=== PATIENT | female | born 2000 | race Caucasian/White ===

== ENCOUNTER 2022-09-25 22:32 | Emergency (ER) | payer MEDICAID, SELFPAY ==
[2022-09-25 22:37] VITALS: BP 125/82; PULSE 89; RESP 18; TEMP 36.9; O2SAT 99; BMI 26.6
--- NOTE | 2022-09-25 22:51 | CRLHL7_ITS ---
For Patients: As a result of the Century Cures Act, medical imaging exams and procedure reports are released immediately into your electronic medical record. You may view this report before your referring provider. If you have questions, please contact your health care provider. Indication: .CONSTIPATION, 3 WKS ABD PAIN Technique: Abdomen 2 view. Comparison: None. Findings/Impression: Non-obstructive bowel gas pattern. No free air. No abnormal abdominal calcifications. Surgical clips overlie the right in the abdomen. Osseous structures are unremarkable for age. Dictated by Dayron Frederick MD @ 09/25/2022 11:37:41 PM (Electronically Signed)
--- NOTE | 2022-09-25 22:51 | ED.GENADULT ---
HPI - General Adult General Chief complaint: Constipation Stated complaint: no bowel movements in 3 weeks Time Seen by Provider: 09/25/22 22:34 Source: patient and family Mode of arrival: ambulatory Limitations: no limitations History of Present Illness HPI narrative: 21-year-old female with history of anxiety disorder presents with a 3 week history of constipation. Passing gas. History of 1 prior abdominal surgery, non complicated appendectomy at age 13 or 14. She states that she started a new antidepressant around that time but cannot remember which 1. She followed up with her primary care doctor yesterday, she was prescribed a fiber supplement. She tried to take a dose of MiraLax today but states that it seemed to make her more nauseated and she could not get it down says she has vomited twice today. It sounds non bilious per her description but certainly no blood. There has been no blood in her stools, no urinary symptoms. Abdomen feels diffusely tender and bloated but no focal tenderness. No previous imaging or blood work. No prior history of significant constipation actually she states that her bowels tend to move very regularly. She does suspect that the new medication could be worsening things for her. Past medical history is notable only for anxiety disorder. She takes an unknown antidepressant per her. Chart says that this could be venlafaxine. I can not tell if this is the newly prescribed medication or 1 of the several that she has been on before. Socially, denies any toxic substance ingestion or illicit drugs. No pertinent travel. ROS is otherwise negative times 12 systems. Related Data Home Medications Medication Instructions Recorded Confirmed venlafaxine 75 mg capsule,extended 75 mg PO DAILY 09/25/22 09/25/22 release 24 hr Allergies Allergy/AdvReac Type Severity Reaction Status Date / Time sulfamethoxazole Allergy Mild Hives Verified 09/25/22 22:42 [From Bactrim] trimethoprim [From Bactrim] Allergy Mild Hives Verified 09/25/22 22:42 [facility] Medical History Depression ?F32.A - Depression, unspecified (ICD-10) AUREA (generalized anxiety disorder) ?F41.1 - Generalized anxiety disorder (ICD-10) Surgical History History of appendectomy ?Z90.49 - Acquired absence of other specified parts of digestive tract (ICD-10) Social History Smoking Status: Never smoker Do you use any of these nicotine containing products: None Second hand tobacco smoke exposure: No How often do you have a drink containing alcohol: never How often do you have six or more drinks on one occasion: Never AUDIT-C Alcohol total score: 0 Non-prescribed substance use: denies use Exam Const: Vital Signs, click to edit/add: Vital Signs - 24 hr 09/25/22 22:37 Temperature 98.4 F Pulse Rate [Right Pulse Oximeter] 89 Respiratory Rate 18 Blood Pressure [Ri ght Upper Arm] 125/82 Pulse Oximetry 99 Oxygen Delivery Me thod Room Air Documenting provider has reviewed patient's vital signs: yes Common normals: no apparent distress General appearance: cooperative, comfortable and well kempt HENMT: Common normals: normocephalic Head and scalp: normocephalic Face and sinus: normal facial exam Mouth: oral and palatal mucosa normal Throat: posterior oropharynx normal Eye: General eye: normal appearance of both eyes Neck & C-Spine: Common normals: full ROM and no lymphadenopathy Resp: Common normals: normal respiratory effort, no use of accessory muscles and clear to auscultation bilaterally Effort & inspection: able to speak in complete sentences Auscultation: clear to auscultation bilaterally Cardio: Common normals: regular rate, regular rhythm, S1 normal heart sound, S2 normal heart sound and no murmurs Rate: regular rate Rhythm: regular rhythm Heart sounds: S1 normal and S2 normal GI: Other: Benign-appearing abdomen. Bowel sounds are present in all 4 quadrants. Does really seem distended. It is mildly diffusely tender but nonfocal. No mass. Liver and spleen are not enlarged. Extremity: Common normals: normal to inspection Psych: Common normals: speech normal Appearance: well kempt Speech: normal speech Insight: insight good Judgement: judgment good Skin: Common normals: no rashes or lesions noted General skin exam: no rashes or lesions noted Course Vital Signs Vital signs: Initial Vital Signs Temperature 98.4 F 09/25/22 22:37 Temperature Source Temporal Artery Scan 09/25/22 22:37 Pulse Rate 89 09/25/22 22:37 Respiratory Rate 18 09/25/22 22:37 Blood Pressure 125/82 09/25/22 22:37 Blood Pressure Mean 96 09/25/22 22:37 Blood Pressure Position Sitting 09/25/22 22:37 Pulse Oximetry 99 09/25/22 22:37 Oxygen Delivery Method Room Air 09/25/22 22:37 Vital Signs Temperature 98.4 F 09/25/22 22:37 Pulse Rate 89 09/25/22 22:37 Respiratory Rate 18 09/25/22 22:37 Blood Pressure 125/82 09/25/22 22:37 Pulse Oximetry 99 09/25/22 22:37 Oxygen Delivery Method Room Air 09/25/22 22:37 Temperature 98.4 F 09/25/22 22:37 Pulse Rate 89 09/25/22 22:37 Respiratory Rate 18 09/25/22 22:37 Blood Pressure 125/82 09/25/22 22:37 Pulse Oximetry 99 09/25/22 22:37 Oxygen Delivery Method Room Air 09/25/22 22:37 Medical Decision Making MDM Narrative Medical decision making narrative: Wide differential diagnosis including constipation, obstruction, volvulus, functional abdominal pain, gas, GERD. Suspect constipation, induced and or worsened by recent SSRI use. Note reviewed from 09/25 from primary care provider. She does not believe to be able to hold down any laxatives that I give, we discussed risks and benefits of anti nausea medication and I do want her know that this can cause decreased got motility, worsening constipation but it may give this a chance to at least get the laxatives in her system. Will also perform an abdominal x-ray. Await findings. Update:. Patient has had no change in abdominal symptoms but she has not had any further vomiting here. I reviewed the x-ray findings with her, thankfully these are normal. There is no sign of obstruction or free air. There was certainly some stool and gas but is not overwhelming. I do believe that she will be able to relieve this with oral agents. I have given her 2 senna tablets here and I have encouraged her to push fluids when she gets home. Discussed laxative management at home she may do MiraLax or bisacodyl 5 mg tablets every 8 hours for up to 5 additional doses. She may stop when she has had 2 loose stools. Counseled that she will have cramping from these treatments. She has elected to stop the antidepressant. I have encouraged her to discuss this further with her primary care provider. There is not enough constipation to explain her nausea and I suspect that that is more a side effect from her current medication or a separate process. All questions answered. Imaging Data Abdominal x-ray: Attestation: I have reviewed the pertinent imaging results. My impression: Normal belly, no signs of obstruction or free air Radiologist's impression: Findings/Impression: Non-obstructive bowel gas pattern. No free air. No abnormal abdominal calcifications. Surgical clips overlie the right in the abdomen. Osseous structures are unremarkable for age. Discharge Plan Discharge Clinical Impression: Medication side effect, Constipation Patient Disposition: Home w/ Parent or Adult Condition: Stable Instructions: Constipation (DC) Additional Instructions: Discussed, I do suspect that your new medication is the root of your constipation and nausea. You have decided to stop the medication. This is reasonable but I would encourage you to work very closely with her primary care provider to discuss alternatives or potentially different dose that you may tolerate better. Your given 2 senna tablets here in the emergency department. Remember that this is a stimulant laxative and cramps are common. But it does do an excellent job of moving things through the gut. Drink plenty of water or diluted juice, T or other clear non milk beverages to help push this through. There are many laxative options available to you. The fiber that was discussed with your primary care provider is an excellent choice but is better for maintenance once we have gotten your stools moving well. Consider using that supplement once daily once we have achieved at least 2 loose bowel movements. After the senna, I would recommend that you switch tomorrow morning to bisacodyl 5 mg tablets. You can find this at any drug store or grocery store. Take the laxative every 8 hours for up to 5 additional doses. If you have still not experienced relief, call your primary care provider for additional assistance on Tuesday. You may stop the laxatives once you have had 2 loose stools. It is okay to use Tylenol and/or ibuprofen for the abdominal cramps that come with the laxatives. Activity Level: No Restrictions Discharge Diet: Regular Prescriptions: No Action venlafaxine 75 mg capsule,extended release 24hr 75 mg PO DAILY Stand Alone Forms: [employer] Info Instructions
[2022-09-25] MEDS: ONDANSETRON ODT 4 MG TAB PO (22:55)
--- OUTSIDE RECORDS SUMMARY | 2022-09-25 23:43 | XMS_ITS | Continuity of Care Document ---
Author Name Unknown Organization [facility] Address [address] [address] [place] [address] Phone Care Team Providers Care Electronics Teacher Name Role Phone No Information Unavailable Unavailable Advance Directives Directive Yes / No Effective Date File Name No Information Encounters Encounter Description Practice Location Reason(s) For Visit Diagnoses Date Provider Providers Copied on Encounter [facility], [address] [address], [place], [place], [id number], tel:[phone] No Information No Information Referring Provider: Ronen Daniel, [address] [place], [address] . tel:[phone] Family History Family Member Type Diagnosis Age At Onset No Information Payers Payer name Insurance type Covered constitution party ID Authoriza tion(s) No Information Social History Type Description Quantity Date Captured Comments Sex Female Smoking Status No Information Chief Complaint And Reason For Visit No Information Reason For Referral Reason For Referral No Information Plan Of Treatment Date Type Action Status No Information History Of Present Illness Encounter Date Complaint History Of Prese nt Illness No Information Functional Status Date Functional Assessmen t No Information Instructions Date Instruction Additional Infor mation No Information Assessments Type Assessment Date No Information Patient Care Teams Name Effective Dates (start - stop) Status Members No Information
--- OUTSIDE RECORDS SUMMARY | 2022-09-25 23:43 | XMS_ITS | Continuity of Care Document ---
Author Name Unknown Organization [facility] Address [address] [address] [place] [address] Phone Care Team Providers Care Chief Nursing Officer Name Role Phone No Information Unavailable Unavailable Advance Directives Directive Yes / No Effective Date File Name No Information Encounters Encounter Description Practice Location Reason(s) For Visit Diagnoses Date Provider Providers Copied on Encounter [facility], [address] [address], [place], [place], [address], tel:[phone] No Information No Information Referring Provider: Ronen Daniel, [address] [place], [address] . tel:[phone] Family History Family Member Type Diagnosis Age [...]
[2022-09-25] MEDS: SENNOSIDES 1 TAB TABLET 2 TAB PO (23:59)
== END 2022-09-26 | disposition home or self-care (01) ==
PROVIDERS: Emergency Provider Family Medicine
DX: K59.00 Constipation, unspecified (principal); T50.905A Adverse effect of unspecified drugs, medicaments and biological substances, initial encounter
CPT/HCPCS: 74019; 99283; A9270

== ENCOUNTER 2025-03-29 17:49 | Emergency (ER) | payer OTHER, SELFPAY ==
--- OUTSIDE RECORDS SUMMARY | 2017-06-06 04:40 | XMS_ITS | Continuity of Care Document ---
Author Organization [facility] Address [address] [address] [place] [address] Phone Care Team Providers Care Carpet Installer Name Role Phone No Information Unavailable Unavailable Advance Directives Directive Yes / No Effective Date File Name No Information Encounters Encounter Description Practice Location Reason(s) For Visit Diagnoses Date Provider Providers Copied on Encounter [facility], [address] [address], [place], [place], [address], tel:[phone] No Information No Information Referring Provider: Ronen Daniel, [address] [place], [address] . tel:[phone] Family History Family Member Type Diagnosis Age At Onset No Information Payers Payer name Insurance type Covered constitution party ID Authoriza tion(s) No Information Social History Type Description Quantity Date Captured Comments Sex Female Smoking Status No Information Chief Complaint And Reason For Visit No Information Reason For Referral Reason For Referral No Information History Of Present Illness Encounter Date Complaint History Of Prese nt Illness No Information Functional Status Date Functional Assessmen t No Information Instructions Date Instruction Additional Infor mation No Information Assessments Type Assessment Date No Information Patient Care Teams Name Effective Dates (start - stop) Status Members No Information
--- OUTSIDE RECORDS SUMMARY | 2017-06-06 04:40 | XMS_ITS | Continuity of Care Document ---
Author Organization [facility] Address [address] [place] [address] Phone Care Team Providers Care Belt Tender Name Role Phone No Information Unavailable Unavailable Advance Directives Directive Yes / No Effective Date File Name No Information Encounters Encounter Description Practice Location Reason(s) For Visit Diagnoses Date Provider Providers Copied on Encounter [facility], [address] [address], [place], [place], [address], tel:[phone] No Information No Information Referring Provider: Ronen Daniel, [address] [place], [address] . tel:[phone] Family History Family Member Type Diagnosis Age At Onset No Information Payers Payer name Insurance type Covered green party ID Authoriza tion(s) No Information Social [...]
[2025-03-29] VITALS (11 sets, daily range): BP systolic 128–164; BP diastolic 96–107; PULSE 95–119; RESP 18; TEMP 37.6–38.2; O2SAT 92–98; BMI 26.6
--- OUTSIDE RECORDS SUMMARY | 2025-03-29 17:51 | XMS_ITS | Clinical Summary ---
Author Organization [facility] Address [address] [place] [address] Care Team Providers Care Liquid Sugar Fortifier Name Role Phone Ronen Walker Primary Care Provider [phone] Allergies Active Allergy Reactions Criticality Noted Date Comments Azithromycin Hives,Nausea And Vomiting 09/19/19 19 Sulfamethoxazole-Trimethopri m Rash High 10/10/2017 Medications escitalopram oxalate (LEXAPRO) 10 mg tabletIndicatio ns:Depression with anxiety TAKE 1 TABLET BY MOUTH EVERY DAY IN THE MORNING 30 tablet 01/28/2019 Active Active Problems Problem Noted Date Diagnosed Date Irregular menses 02/22/2017 Depression with anxiety 02/22/2017 Sleep difficulties 02/22/2017 Immunizations Immunization Administration Dates Next Due DTaP 12/30/2005, 3,05/31/2001,04/13,01/25/2001 HIB-HepB (Comvax) 12/01/2001,04/13/2001,01/26/20 01 HPV 9 (Gardasil 9) 08/15/2018 HepA-HepB (Twinrix) 12/01/2001,04/13/2001,2000 Hepatitis B (Peds) 12/01/2001,04/13/2001, 001 Inactivated Polio Vaccine 12/30/2005,,04/13/2001,01/25 MENINGOCOCCAL VACCINE 2 VIAL 2MO-55YO (MENVEO) 08/15/2018 MMR 12/30/2005,12/01/2001 Meningococcal Vaccine 02/26/2013 Pneumococcal conj 7-Valent (Prevnar 7) 3,05/31/2001,01/25/2001 Tdap 02/26/2013 Varicella Vaccine 02/26/2013,12/01/2001 Family History Medical History Relation Name Comments No Known Problems Brother x 1 Alcoholism Father Anxiety disorder Father Diabetes Father Hyperlipidemia Father Hypertension Father Multiple sclerosis Maternal Grandmother Other Other MS in maternal gr aunt along with Lupus Diabetes Paternal Grandfather Heart attack Paternal Grandfather Hypertension Paternal Grandfather No Known Problems Paternal Grandmother No Known Problems Sister x 1 Relation Name Status Comments Brother x 1 Alive Father Alive Maternal Grandfather unknown Alive Maternal Grandmother Mother Alive Other Paternal Grandfather Alive Paternal Grandmother Alive Sister x 1 Alive Social History Tobacco Use Types Packs/Day Years Used Date Smoking Tobacco: Never Smokeless Tobacco: Never Tobacco Cessation:Counseling Given: Yes Alcohol Use Standard Drinks/Week Comments No 0 (1 standard drink = 0.6 oz pur e alcohol) PHQ-2 Answer Date Recorded PHQ-2 Score 5 09/05/2018 Comments No Sex and Gender Information Value Date Recorded Sex Assigned at Not on file Legal Sex Female 4:14 PM CDT Gender Identity Not on file Sexual Orientation Not on file 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 Not on file Not 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 Not on file Not on file Obstetrics History Last Filed Vital Signs Vital Sign Reading Time Taken Comments Blood Pressure 143/80 04/17/2021 6:17 PM CDT Pulse 87 04/17/2021 6:17 PM CDT Temperature 36.4 C (97.6 F) 04/17/2021 6:17 PM CDT Respiratory Rate 14 04/17/2021 6:17 PM CDT Oxygen Saturation 99% 04/17/2021 6:17 PM CDT Inhaled Oxygen Concentration - - Weight 72.6 kg (160 lb) 04/17/2021 6:17 PM CDT Height 170.2 cm (5' 7) 04/17/2021 6:17 PM CDT Body Mass Index 25.06 04/17/2021 6:17 PM CDT Plan of Treatment Health Maintenance Due Date Last Done Comments HIV for age 15-65 11/22/2015 HPV series for age 9-45 (2 - 3-dose series) 09/12/2018 08/15/2018 Hepatitis C screening for age 18-79 2018 Depression screening for age 12+ 08/17/2019 08/17/2018, 08/17/2018, 08/15/2018, Additional history exists Chlamydia for age 16-24 09/16/2019 09/15/2018, 08/15 BMI (ht and wt on same day) for age 18+ 03/27/2020 03/27/2019 Pap test for age 21-65 2021 Tetanus booster 02/26/2023 02/26/2013 COVID-19 vaccine series ( season) 2025 08/02/2022, 05/01/2021, 04/10/2021 Influenza Vaccine (#1) 2025 RSV vaccine for adults or (1 - 1-dose 75+ series) 11/22/2075 Hepatitis B series for 19+ Completed 12/01, 12/01/2001, 12/01/2001, Additional history exists Pneumococcal series for age 6-49 Aged Out 09/14/2002, 05/31/2001, 01/25/2001 No longer eligible based on patient's age to complete this topic Procedures Procedure Name Priority Date/Time Associated Diagnosis Comments CHLAMYDIA TRACH PROBE Routine 09/15/2018 12:57 PM CDT Urine positive for Chlamydia trachomatis by PCR from Last 3 Months or Most Recently Relevant to Health Maintenance Results * CHLAMYDIA TRACH PROBE (09/15/2018 12:57 PM CDT) CHLAMYDIA PROBE Negative 09/18/2018 1:34 PM CDT [facility] Other URINE SPECIMEN / Unknown Non-Blood / Unknown 09/15/2018 12:57 PM CDT 09/15/2018 12:57 PM CDT us Ron[facility] Final Resul t [facility] [address] [place] [address], [place] from Last 3 Months or Most Recently Relevant to Health Maintenance Insurance [facility] Member Subscriber Plan / Payer (Ef fective 2018-Present) Name:Abigail Cunningham Relation to Subscriber:Child Name:Emily CUNNINGHAM Date of :1971 (Home) (Work) Address: [address] [place] [address] Payer ID:Not on file Group ID:[id number] Type:Not on file Address: [place] [address] Care Teams Liquid Sugar Fortifier Relationship Specialty [place] [address] [place] [address] PCP - General Family Practice 10/03/17
--- OUTSIDE RECORDS SUMMARY | 2025-03-29 17:51 | XMS_ITS | Clinical Summary ---
Author Organization [place] [facility] Address [address] [facility] [place] [address] Care Team Providers Care Nursing Education Specialist Name Role Phone Colleen Plascencia MD Primary Care Provider [phone] See Pantoja Unavailable Unavailable Crescencio Dominguez Unavailable Allergies Active Allergy Reactions Criticality Noted Date Comments Azithromycin Nausea and Vomiting,Hives 09/19/19 19 Sulfamethoxazole-Trimethopri m Rash High 10/10/2017 Medications ondansetron (ZOFRAN-ODT) 4 MG ODT tabIndications: Nausea Take 1 tablet (4 mg) by mouth every 8 hours as needed for nausea or vomiting 30 tablet 10/18/2020 Active dicyclomine (BENTYL) 20 MG tablet Take 20 mg by mouth Active celecoxib (CELEBREX) 100 MG capsule Take 100 mg by mouth 01/20/2023 Active busPIRone (BUSPAR) 7.5 MG tablet Take 7.5 mg by mouth 2 times daily 01/20/2023 Active citalopram (CELEXA) 20 MG tablet Take 10 mg by mouth daily 01/20/2023 Active Active Problems Problem Noted Date Diagnosed Date Irritable bowel syndrome with diarrhea 3 Menorrhagia with regular cycle 09/24/2022 Overview (02/21/2023): Last Assessment & Plan: - Pt has very heavy periods. Has side effects with OCPs and bleeding did not improve with nexplanon. Discussed hormonal IUD and placement at length, discussed likely best option to decrease bleeding. Recommended taking ibuprofen before placement. Offered referral but she does have a WOUND TREATMENT RN she already uses. Recommended discussing with her further. Also recommended trying to have placed during her cycle to decrease discomfort. Moderate episode of recurrent major depressive d isorder 09/23/2022 Overview (02/21/2023): Last Assessment & Plan: - Mood doing much better on current medications but having trouble with constipation. See pt instructions. Will start fiber supplement daily. Discussed may have bloating at start but should start to soften and regulate stools. - Will keep at same dose due to fear that increase will cause worsening side effects. Refills provided. Recheck in 3-6 months based on response. AUREA (generalized anxiety disorder) 05/13/2020 Thoracic radiculopathy 05/13/2020 Irregular menses 02/22/2017 Sleep difficulties 02/22/2017 Resolved Problems Problem Noted Date Diagnosed Date Resolved Date Appendicitis 12/27/2014 05/13/2020 Immunizations Immunization Administration Dates Next Due COVID-19 MONOVALENT 12+ (Pfizer) 05/01/2021,02/2021 Comvax (HIB/HepB) 12/01/2001,04/13/2001,01/26/20 01 DTAP (<7y) 12/30/2005, 3,05/31/2001,04/13,01/25/2001 HPV 02/18/2021 HPV9 (Gardasil) 05/13/2020,08/15/2018 Hepatitis A/B (Twinrix) 12/01/2001,04/13/2001, Hepatitis B, Peds (Engerix-B/Recombivax HB) 12/01/2001,04/13/2001,01/25/2001 MMR (MMRII) 12/30/2005,12/01/2001 Meningococcal ACWY (Menveo ) 08/15/2018 Meningococcal Mcv4 Conjugate,unspecified 02/26/2013 Pneumococcal (PCV 7) 09/14/2002,05/31/2001,01/25 Pneumococcal 20 valent Conju gate (Prevnar 20) 02/21/2023 Poliovirus, inactivated (IPV) 12/30/2005 ,05/31/2001,04/13/2001,01/25 TDAP (Adacel,Boostrix) 02/21/2023 Tdap (Adult) Unspecified Formulation 02/26/2013 Varicella (Varivax) 02/26/2013,12/01/2001 Family History Medical History Relation Comments Diabetes Father Hypertension Father Hypertension Mother Diabetes Paternal Grandfather Relation Status Comments Father Mother Paternal Grandfather Social History Tobacco Use Types Packs/Day Years Used Date Smoking Tobacco: Every Day Other Smokeless Tobacco: Never Tobacco Cessation:Counseling Given: Yes Comments:E-Cig Alcohol Use Standard Drinks/Week Comments No 0 (1 standard drink = 0.6 oz pur e alcohol) PHQ-2 Answer Date Recorded PHQ-2 Score 0 02/21/2023 Adolescent Education Answer Date Record ed Getting School Help Needed Not on file 04/19 Comments No Sex and Gender Information Value Date Recorded Sex Assigned at Female 10/20/2020 2:01 PM CDT Legal Sex Female 4:18 AM NURSE PRACTITIONER PHYSICIAN ASSISTANT Gender Identity Female 10/20/2020 2:01 PM CDT Sexual Orientation Not on file Last Filed Vital Signs Vital Sign Reading Time Taken Comments Blood Pressure 110/72 02/21/2023 10:52 AM CDT Pulse 60 02/21/2023 10:52 AM CDT Temperature 36.6 C (97.9 F) 02/21/2023 10:52 AM CDT Respiratory Rate 18 02/21/2023 10:52 AM CDT Oxygen Saturation 98% 02/21/2023 10:52 AM CDT Inhaled Oxygen Concentration - - Weight 79.8 kg (176 lb) 02/21/2023 10:52 AM CDT Height 168.9 cm (5' 6.5) 02/21/2023 10:52 AM CD T Body Mass Index 27.98 02/21/2023 10:52 AM CDT Plan of Treatment Health Maintenance Due Date Last Done Comments ADVANCE CARE PLANNING 2000 DEPRESSION ACTION PLAN 2000 PAP 2021 CHLAMYDIA SCREENING 02/18/2022 02/18/2021 PHQ-9 03/28/2022 09/25/2021, 10/03, 05/13/2020 ANNUAL REVIEW OF HM ORDERS 02/22/2024 02/21/2023, YEARLY PREVENTIVE VISIT 02/22/2024 02/22/20 23, 05/13/2022, 05/13/2020 COVID-19 VACCINE ( season) 2025 08/02/2022, 05/01/2021, 04/10/2021 INFLUENZA VACCINE (#1) 2025 DTAP/TDAP/TD VACCINE (8 - Td or Tdap) 02/21/2033 02/21/2023, 02/26/2013, 12/30/2005, Additional history exists ZOSTER VACCINE (1 of 2) 2050 HEPATITIS B VACCINE Completed 12/01/2001, 12/01/2001, 12/01/2001, Additional history exists MENINGITIS VACCINE Completed 08/15/2018, 02/26/2013 HIV SCREENING Discontinued 02/18/2021 HPV VACCINE Completed 02/18/2021, 05/04, 08/15/2018 PNEUMOCOCCAL VACCINE: PEDIATRICS (0 to 5 YEARS) AND AT-RISK PATIENTS (6 to 49 YEARS) Aged Out 02/21/2023, 09/14/2002, 05/31/2001, Additional history exists No longer eligible based on patient's age to complete this topic HEPATITIS C SCREENING Discontinued MENINGITIS B VACCINE Aged Out No long er eligible based on patient's age to complete this topic Procedures Procedure Name Priority Date/Time Associated Diagnosis Comments CHLAMYDIA TRACHOMATIS PCR (EXTERNAL RESULT) Routine 02/18/2021 1:09 AM CDT from Last 3 Months or Most Recently Relevant to Health Maintenance Results * Chlamydia Trachomatis PCR (External Result) (02/18/2021 1:09 AM CDT) Specimen Description URINE [facility] Chlamydia Trachomatis PCR Negative Negative [facility] 02/18/2021 1:09 AM CDT Narrative [facility] - 02/18/2021 1:09 AM CDT chlamydia screening done 02/18/21 [facility], Found in Care Everywhere us Patient Reported LAB - HIM EXTERNAL RESULT Final Result [facility] [address] [place] [address] from Last 3 Months or Most Recently Relevant to Health Maintenance Insurance [facility] Advance Directives For more information, please contact: [phone] * Full Code (Latest Code Status on File) Date Activated Date Inactivated Comments 12/27/2014 10:10 PM 12/28/2014 1:04 PM Care Teams Nursing Education Specialist Relationship Specialty Start [place] [address] [place] [address] PCP - General Family Medicine 05/13/20 See Pantoja Personal Advocate & Liaison (PAL) 12/05/20 Crescencio Dominguez PA [address] [place] [id number] Assigned PCP 02/26/23
--- OUTSIDE RECORDS SUMMARY | 2025-03-29 17:52 | XMS_ITS | Encounter Summary ---
Author Organization [facility] Address [address] [place] [address]. [place] [address] Care Team Providers Care Maintenance Helper Utility Engineer Name Role Phone Colleen Plascencia MD Primary Care Provider [phone] Colleen Plascencia MD Unavailable [phone] Thad Ahmadi Unavailable Unavailable See Pantoja Unavailable Unavailable Colleen Plascencia MD Unavailable [phone] Crescencio Dominguez Unavailable [phone] Encounter Details Date Type Department Care Team (Late st Contact Info) Description 10/20/2020 [facility] Medical Advice [facility] [id number] [place] [id number] [place] [id number] [place] [address] Social History Tobacco Use Types Packs/Day Years Used Date Smoking Tobacco: Every Day Other Smokeless Tobacco: Never Comments:E-Cig Alcohol Use Standard Drinks/Week Comments No 0 (1 standard drink = 0.6 oz pur e alcohol) PHQ-2 Answer Date Recorded PHQ-2 Score 2 10/22/2020 Comments No Sex and Gender Information Value Date Recorded Sex Assigned at Female 10/20/2020 2:01 PM CDT Legal Sex Female 4:18 AM PALLIATIVE CARE NURSE Gender Identity Female 10/20/2020 2:01 PM CDT Sexual Orientation Not on file COVID-19 Exposure Response Date Recorded In the last month, have you been in contact with someone who was confirmed or suspected to have Coronavirus / COVID-19? No / Unsure 10/22/2020 9:27 AM CDT documented as of this encounter Miscellaneous Notes * Telephone Encounter - Franco Jasso RN - 10/20/2020 10:10 AM CDT Per OV notes from visiti 10/18/20: Dizziness She is in no acute distress on exam. CBC is unremarkable. CMP and TSH is pending. Patient will be notified if any abnormal results. Push fluids. Rest. Follow up with primary care provider for the nexplanon removal. Sooner if any worsening symptoms. She agrees. Patient needs to be scheduled for OV for nexplanon removal w/ PCP. Routing to [place] to assist. Franco Chauhan RN documented in this encounter Plan of Treatment Not on file documented as of this encounter Visit Diagnoses Not on filedocumented in this encounter Additional Health Concerns Assessment Noted Time PHQ-9 Depression Total Score: 11 025 9:51 AM CDT documented as of this encounter Care Teams Maintenance Helper Utility Engineer Relationship Specialty Start [place] [address] [place] [address] PCP - General Family Medicine 05/13/20 [place] [address] [place] [address] Assigned PCP 04/24/20 06/18/22 Thad Ahmadi Personal Advocate & Liaison (PAL) 11/06/20 12/05/20 See Pantoja Personal Advocate & Liaison (PAL) 12/05/20 [place] [address] [place] [address] Assigned PCP 08/28/22 02/25/23 Crescencio Dominguez PA [address] [place] [id number] Assigned PCP 02/26/23 documented as of this encounter
--- OUTSIDE RECORDS SUMMARY | 2025-03-29 17:52 | XMS_ITS | Encounter Summary ---
Author Organization [facility] Address [address] [place] [address]. [place] [address] Care Team Providers Care Campus Administrator Name Role Phone Colleen Plascencia MD Primary Care Provider [phone] See Pantoja Unavailable Unavailable Colleen Plascencia MD Unavailable [phone] Crescencio Dominguez Unavailable [phone] Encounter Details Date Type Department Care Team (Late st Contact Info) Description 02/22/2023 My[facility] Medical Advice [facility] [address] [place] [address] Crescencio Dominguez PA [address] [place], [place] [id number] Social History Tobacco Use Types Packs/Day Years Used Date Smoking Tobacco: Every Day Other Smokeless Tobacco: Never Comments:E-Cig Alcohol Use Standard Drinks/Week Comments No 0 (1 standard drink = 0.6 oz pur e alcohol) PHQ-2 Answer Date Recorded PHQ-2 Score 0 02/21/2023 Comments No Sex and Gender Information Value Date Recorded Sex Assigned at Female 10/20/2020 2:01 PM CDT Legal Sex Female 4:18 AM TAP PULLER Gender Identity Female 10/20/2020 2:01 PM CDT Sexual Orientation Not on file COVID-19 Exposure Response Date Recorded In the last 10 days, have yo u been in contact with someone who was confirmed or suspected to have Coronavirus/COVID-19? No / Unsure 02/21/2023 10:36 AM CDT documented as of this encounter Plan of Treatment Not on file documented as of this encounter Visit Diagnoses Not on filedocumented in this encounter Additional Health Concerns Assessment Noted Time PHQ-9 Depression Total Score: 4 09/27/19 22 7:03 AM CDT documented as of this encounter Care Teams Campus Administrator Relationship Specialty Start [place] [address] [place] [address] PCP - General Family Medicine 05/13/20 See Pantoja Personal Advocate & Liaison (PAL) 12/05/20 [place] [address] [place] [address] Assigned PCP 08/28/22 02/25/23 Crescencio Dominguez PA [address] [place] [id number] Assigned PCP 02/26/23 documented as of this encounter
--- OUTSIDE RECORDS SUMMARY | 2025-03-29 17:52 | XMS_ITS | Clinical Summary ---
[facility] Address [address] [address] Care Team Providers Care Raschel Knitting Machine Operator Name Role Phone Yani Dickinson PA-C Primary Care Provider Source Comments You are receiving this document as you are listed as the primary care provider,follow-up provider, or the patient has been referred to you for consultation.This is in compliance with the Medicare and[facility] EHR Incentive Program,which states Providers who transition their patient to another setting of careor provider of care or refers their patient to another provider of care shouldprovide summary care record for each transition of care or referral. [facility] Allergies Active Allergy Reactions Criticality Noted Date Comments Azithromycin Hives,Nausea And Vomiting High 09/19/19 19 Sulfamethoxazole-Trimethopri m Rash Medium 10/10/2017 Medications ondansetron (ZOFRAN) 4 MG tabletIndication s:Nausea Take 1 Tablet (4 mg) by mouth every 8 hours as needed for Nausea. 20 Tablet 08/18/2023 Active Active Problems Problem Noted Date Diagnosed Date Irritable bowel syndrome with diarrhea 3 Menorrhagia with regular cycle 09/24/2022 Assessment & Plan (09/24/2022 6:08 AM CDT): - Pt has very heavy periods. Has side effects with OCPs and bleeding did not improve with nexplanon. Discussed hormonal IUD and placement at length, discussed likely best option to decrease bleeding. Recommended taking ibuprofen before placement. Offered referral but she does have a ELECTROMECHANICAL ASSEMBLER she already uses. Recommended discussing with her further. Also recommended trying to have placed during her cycle to decrease discomfort. Moderate episode of recurrent major depressive d isorder 09/23/2022 Assessment & Plan (09/24/2022 6:06 AM CDT): - Mood doing much better on current medications but having trouble with constipation. See pt instructions. Will start fiber supplement daily. Discussed may have bloating at start but should start to soften and regulate stools. - Will keep at same dose due to fear that increase will cause worsening side effects. Refills provided. Recheck in 3-6 months based on response. Fatigue 08/02/2022 Assessment & Plan (08/02/2022 9:34 AM TRAIN BRAKEMAN): - Screen for diabetes and iron deficiency anemia. May start on metformin if in prediabetic range because pt feels significantly fatigued and her blood sugar has been up to 180 when she checks it at home. AUREA (generalized anxiety disorder) 07/30/2022 Overview (08/02/2022): Previously lexapro, zoloft, increased depression, mainly on for depression at that point. Previous ativan prescription was for MRI,not anxiety. Assessment & Plan (08/02/2022 9:33 AM TRAIN BRAKEMAN): -Discussed that usually takes 4-6 weeks before an effect is noted. May have acute worsening of symptoms for the first 2 weeks. If severe mood changes or depression, please call and we will stop the medication right away. - Will follow up in 1 month for recheck. - Atarax for anxiety, take in the evening for first dose to see if causes fatigue. Do not mix with alcohol. - Referral for therapy placed. Thoracic radiculopathy 05/13/2020 Overview (07/30/2022): From 2019, on gabapentin, followed by neurology Resolved Problems Problem Noted Date Diagnosed Date Resolved Date Acne vulgaris 09/23/2022 08/18/2023 Screening for diabetes mellitus 08/02/2022 09/23/2022 Sleep difficulties 02/22/2017 Irregular menses 02/22/2017 05/13/2022 Depression with anxiety 02/22/201705/04 Immunizations Immunization Administration Dates Next Due 9vHPV (Gardasil 9) 02/18/2021,05/13/2020, 019 DTaP 12/30/2005, 3,05/31/2001,04/13,01/25/2001 HepA-HepB (TWINRIX, 18+ yrs) 12/01/2001,04/13/20 01,01/25/2001 HepB Ped/Adol (0-18 yrs) 12/01/2001,04/13/2001,0 01/25/2001 Hib/HBV 12/01/2001,04/13/2001,01/25/2001 IPV (Polio) 12/30/2005, 1,04/13/2001,01/25 MCV4 Menveo 2m.+ (two vial) 08/15/2018 MMR 12/30/2005,12/01/2001 Meningococcal MCV4, Unspecif ied Formulation 02/26/2013 Meningococcal, Unspecified Formulation 3 PCV20 ([id number]) 02/21/2023 Pfizer Bivalent 12+ 08/02/2022 Pfizer Monovalent 12+ Purple Top 05/01/2021,02/2021 Pneumococcal 7, PED 09/14/2002,05/31/2001,2000 Td (7+ yrs) 02/26/2013 Tdap 02/21/2023,02/26/2013 Varicella 02/26/2013,12/01/2001 Family History Medical History Relation Name Comments Diabetes Father Glenn Hernandez Hypertension Father Glenn Hernandez Depression Mother Yoly Wu Hypertension Mother Yoly Wu Asthma Brother Tobin Wu Depression Brother Tobin Wu No Known Problems Maternal Grandfather Multiple Sclerosis Maternal Grandmother Diabetes Paternal Aunt Vale Hernandez Alzheimer's Paternal Grandfather Diabetes Paternal Grandfather No Known Problems Paternal Grandmother No Known Problems Sister Cancer, Breast Negative Family History Cancer, Colon Negative Family History Cancer, Ovary Negative Family History Relation Name Status Comments Father Glenn Hernandez Alive Mother Yoly Wu Alive Brother Tobin Wu Alive Maternal Grandfather Maternal Grandmother Paternal Aunt Vale Hernandez Paternal Grandfather Paternal Grandmother Sister Alive Social History Tobacco Use Types Packs/Day Years Used Date Smoking Tobacco: Never Smokeless Tobacco: Never Tobacco Cessation:Counseling Given: Not Answered Alcohol Use Standard Drinks/Week Comments Not Currently 0 (1 standard drink = 0.6 oz pur e alcohol) PHQ-2 Answer Date Recorded PHQ-2 Score 2 01/20/2023 Comments No Sex and Gender Information Value Date Recorded Sex Assigned at Female 01/08/2021 6:35 PM CDT Legal Sex Female 2:32 PM TRAIN BRAKEMAN Gender Identity Female 01/08/2021 6:35 PM CDT Sexual Orientation Straight 10/21/2021 10 :23 PM CDT 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 Not on file Not on file Last Filed Vital Signs Vital Sign Reading Time Taken Comments Blood Pressure 123/65 08/18/2023 11:26 AM TRAIN BRAKEMAN Pulse 67 08/18/2023 11:26 AM TRAIN BRAKEMAN Temperature 36.9 C (98.5 F) 08/18/2023 11:26 AM TRAIN BRAKEMAN Respiratory Rate 18 08/12/2020 2:43 PM TRAIN BRAKEMAN Oxygen Saturation 98% 08/12/2020 2:43 PM TRAIN BRAKEMAN Inhaled Oxygen Concentration - - Weight 76.2 kg (168 lb) 08/18/2023 11:26 AM TRAIN BRAKEMAN Height 170.2 cm (5' 7) 08/02/2022 9:01 AM TRAIN BRAKEMAN Body Mass Index 26.31 08/02/2022 9:01 AM TRAIN BRAKEMAN Plan of Treatment Health Maintenance Due Date Last Done Comments Hep C Screening (Preventive Services) 2000 Adult Preventive Visit 05/13/2023 05/13/2022, 2020 Chlamydia 05/13/2023 05/13/2022, 02/18/2021 COVID-19 Vaccine ( season) 2025 08/02/2022, 05/01/2021, 04/10/2021 Influenza Vaccine (#1) 2025 Cervical Cancer Screening 05/13/2025 05/13/2022 DTaP/Tdap/Td Vaccine (8 - Tdap) 02/21/2033 02/21/2023, 02/26/2013, 02/26/2013, Additional history exists Zoster/Shingles Vaccine (1 of 2) 2050 HepB Vaccine Completed 12/01/2001, 11/03, 12/01/2001, Additional history exists Hib Vaccine Completed 12/01/2001, 04/03, 01/25/2001 IPV (Polio) Vaccine Completed 12/30/2005, 05/31/2001, 04/13/2001, Additional history exists Varicella Vaccine Completed 02/26/2013, 12/01/2001 MCV4 Vaccine Completed 08/15/2018, 02/26/2013 HIV Screening (Preventive Services) Completed 02/18/2021 HPV Vaccine Completed 02/18/2021, 05/04, 08/15/2018 Pneumococcal Vaccine Aged Out 02/21/2023, 09/14/2002, 05/31/2001, Additional history exists No longer eligible based on patient's age to complete this topic Meningococcal B Vaccine Aged Out No l onger eligible based on patient's age to complete this topic Procedures Procedure Name Priority Date/Time Associated Diagnosis Comments CHLAMYDIA & GC (14 YEARS & OLDER) Routine 05/13/2022 4:11 PM TRAIN BRAKEMAN Annual physical exam Screen for STD (sexually transmitted disease) CYTOLOGY (PAP) Routine 05/13/2022 4:10 PM TRAIN BRAKEMAN Screening for cervical cancer HIV 1/2 AG/AB 4TH GEN Routine 02/18/2021 12:26 PM CDT Screening for HIV (human immunodeficiency virus) from Last 3 Months or Most Recently Relevant to Health Maintenance Results * Chlamydia & GC (14 Years and Older) (05/13/2022 4:11 PM TRAIN BRAKEMAN) Chlamydia Trachomatis STD Not Detected Not Detected 05/14/2022 12:30 PM TRAIN BRAKEMAN [facility] N. gonorrhoeae STD Not Detected Not Detected 05/14/2022 12:30 PM TRAIN BRAKEMAN [facility] Swab STD SPECIMEN FROM VAGINA / Unknown Non-blood Collection / Unknown 05/13/2022 4:11 PM TRAIN BRAKEMAN 05/13/2022 4:17 PM TRAIN BRAKEMAN Narrative [facility] - 05/14/2022 12:30 PM TRAIN BRAKEMAN Test performed by Golf Ball Inspector Mediated Amplification (TMA). Thania Caballero APRN, LORA LAB_1 Final Result [facility] [address] [place] [address], [facility] [phone] * PAP Test (05/13/2022 4:10 PM TRAIN BRAKEMAN) Case Report Pap Case: [id number] Authorizing Provider: Thania Caballero APRN, Collected: 05/13/2022 1610 ELECTRONIC ENGINEERING TECHNICIAN Ordering Location: [facility] Received: 05/13/2022 1618 Services-BISQUE KILN DRAWER First Screen: Suze Cartwright Rescreen: Gaviota Burciaga CT (ASCP) Specimen: Pap Test, Routine, Cervix/Endocervix 05/26/2022 1:16 PM TRAIN BRAKEMAN [facility] Pap Specimen Adequacy Satisfactory for evaluation, endocervical/gray sformation zone component present. 05/26/2022 1:16 PM TRAIN BRAKEMAN [facility] Pap Interpretation (NILM) Negative for intraepithelial lesion or malignancy. 05/26/2022 1:16 PM TRAIN BRAKEMAN [facility] at 1316 TRAIN BRAKEMAN Pap Disclaimer The Pap test is a screening test designed to aid in the detection of cervical cancer and its precursor lesions. It is not a diagnostic procedure and should not be used as the sole means of detecting cervical cancer. Both false-positive and false-negative results may occur. 05/26/2022 1:16 PM TRAIN BRAKEMAN [facility] Gross Description The specimen is received in SurePath fixative and properly labeled. 1 Pap-stained SurePath slide is prepared. 05/26/2022 1:16 PM TRAIN BRAKEMAN [facility] Embedded Images 1:16 PM TRAIN BRAKEMAN [facility] Other Specimen Type ENTIRE ENDOCERVIX / Unknown 05/13/2022 4:10 PM TRAIN BRAKEMAN 05/13/2022 4:18 PM TRAIN BRAKEMAN Comment:LMP: Patient's last menstrual period was 04/29/2022 (exact date). us Thania Caballero APRN, ELECTRONIC ENGINEERING TECHNICIAN LAB PATHOLOGY Final Result [facility] [address] [place], [place] [address] * HIV 1/2 Ag/Ab 4th Generation (02/18/2021 12:26 PM CDT) HIV 1/2 Antigen/Anti body (4th generation) Negative (Non Reactive) Negative (Non Reactive) 02/18/2021 4:50 PM CDT [facility] Comment:HIV-1 p24 Antigen an d HIV-1/HIV-2 Antibody not detected Blood Venipuncture / Unknown 02/18/2021 12:26 PM CDT 02/18/2021 12:27 PM CDT us Anisha Main MD LAB_1 Final Result Performing Organization Address City/[facility] Co de Phone Number [facility] [address] [phone] from Last 3 Months or Most Recently Relevant to Health Maintenance Insurance [facility] MEDICAL ASSISTANCE Care Teams Raschel Knitting Machine Operator Relationship Specialty Start Date End Date Yani Dickinson, PAKavehC [address] [place] [address] PCP - General Physician Audit Director 09/03/22
--- OUTSIDE RECORDS SUMMARY | 2025-03-29 17:52 | XMS_ITS | Encounter Summary ---
Author Organization [place] Address [address] [place] [address]. [place] [address] Care Team Providers Care Recoil Spring Winder Name Role Phone Colleen Plascencia MD Primary Care Provider [phone] Colleen Plascencia MD Unavailable [phone] See Pantoja Unavailable Unavailable Colleen Plascencia MD Unavailable [phone] Crescencio Dominguez Unavailable [phone] Encounter Details Date Type Department Care Team (Late st Contact Info) Description 09/25/2021 My[facility] Medical Advice [address] [phone] See Pantoja Social History Tobacco Use Types Packs/Day Years [...] PM CDT Legal Sex Female 4:18 AM ENLISTED ADVISOR Gender Identity Female 10/20/2020 2:01 PM CDT Sexual Orientation Not on file COVID-19 Exposure Response Date Recorded In the last month, have you been in contact with someone who was confirmed or suspected to have Coronavirus / COVID-19? No / Unsure 09/02/2021 5:32 PM ENLISTED ADVISOR documented as of this encounter Plan of Treatment Not on file documented as of this encounter Visit Diagnoses Not on filedocumented in this encounter Additional Health Concerns Assessment Noted Time PHQ-9 Depression Total Score: 4 09/27/19 22 7:03 AM CDT documented as of this encounter Care Teams Recoil Spring Winder Relationship Specialty [place] [address] [place] [address] PCP - General Family Medicine 05/13/20 [place] [address] [place] [address] Assigned PCP 04/24/20 06/18/22 See Pantoja Personal Advocate & Liaison (PAL) 12/05/20 [place] [address] [place] [address] Assigned PCP 08/28/22 02/25/23 Crescencio Dominguez PA [address] [place] [address] Assigned PCP 02/26/23 documented as of this encounter
--- OUTSIDE RECORDS SUMMARY | 2025-03-29 17:52 | XMS_ITS | Encounter Summary ---
Author Organization [place] Address [address] [place] [address]. 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 No / Unsure 09/02/2021 5:32 PM SEGMENTAL PAVING SUPERVISOR documented as of this encounter Plan of Treatment Not on file documented as of this encounter Visit Diagnoses Not on filedocumented in this encounter Additional Health Concerns Assessment Noted Time PHQ-9 Depression Total Score: 4 09/27/19 22 7:03 AM CDT documented as of this encounter Care Teams Tight Rope Walker Relationship Specialty Start [place] [address] [place] [address] PCP - General Family Medicine 05/13/20 [place] [address] [place] [address] Assigned PCP 04/24/20 06/18/22 See Pantoja Personal Advocate & Liaison (PAL) 12/05/20 [place] [address] [place] [address] Assigned PCP 08/28/22 02/25/23 Crescencio Dominguez PA [address] [place] [id number] Assigned PCP 02/26/23 documented as of this encounter
--- NOTE | 2025-03-29 18:16 | ED_ITS ---
HPI - General Adult General Date Seen: 03/29/25 Chief complaint: Fever Stated complaint: Fever, lethargy, dehydration Time Seen by Provider: 03/29/25 18:10 History of Present Illness HPI narrative: Patient is a 24-year-old young woman here with her mom for evaluation of fever and flu symptoms. 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 She has not had a rash, she has had a headache, has felt dizzy when she stands up. Had an episode of vomiting last night and another 1 today although she has not vomited since about 1:00 a.m. this afternoon. Denies diarrhea or bloody stools. Denies any chest pain, cough, abdominal or back pain, urinary symptoms. General health is otherwise good. She feels very dizzy when she stands up, does not think she has kept up on hydration. She does not describe vertigo, does get some nausea when she stands up related to the dizzy feeling. When she is lying down she feels fine. Related Data Allergies Allergy/AdvReac Type Severity Reaction Status Date / Time sulfamethoxazole (From Allergy Mild Hives Verified 03/29/25 18:02 Bactrim) trimethoprim (From Bactrim) Allergy Mild Hives Verified 03/29/25 18:02 Review of Systems Status of ROS: Reports: 10 or more systems reviewed and unremarkable except as noted in History and below [facility] Medical History Depression ?F32.A - Depression, unspecified (ICD-10) AUREA (generalized anxiety disorder) ?F41.1 - Generalized anxiety disorder (ICD-10) Surgical History History of appendectomy ?Z90.49 - Acquired absence of other specified parts of digestive tract (ICD- 10) Social History Smoking Status: Never smoker Do you use any of these nicotine containing products: None Second hand tobacco smoke exposure: No How often do you have a drink containing alcohol: never How often do you have six or more drinks on one occasion: Never AUDIT-C Alcohol total score: 0 Non-prescribed substance use: denies use service: No Exam Narrative: Exam Narrative: Vital signs reviewed In general, alert, nontoxic young woman. Breathing easily. Head: Normocephalic, atraumatic. Eyes: Sclera clear. Pupils equal and reactive. ENT: Mucous membranes dry. Neck: Supple without adenopathy. Heart: Tachycardic, regular, no murmur. Lungs: Clear. No increased work of breathing, crackles or wheezes. Abdomen: Soft, nontender to palpation. Extremities: Well perfused, pulses intact. No significant edema. Neurologic: Alert, conversant. Speech fluent, face symmetric. Moves all extremities equally. No ataxia. Skin: Warm, dry well perfused. Affect: Normal. Const: Vital Signs, click to edit/add: Vital Signs - 24 hr 03/29/25 17:58 03/29/25 18:15 03/29/25 18:39 Temperature 100.8 F H 100.8 F H Pulse Rate [Left P ulse Oximeter] 119 H Pulse Rate [Pulse Oximeter] 95 Respiratory Rate 18 18 Blood Pressure [Ri ght Arm] 128/96 H Blood Pressure [Ri ght Upper Arm] 164/107 H Pulse Oximetry 96 98 92 Oxygen Delivery Me thod Room Air Room Air 03/29/25 18:40 03/29/25 18:50 03/29/25 19:00 Temperature Pulse Rate [Left P ulse Oximeter] Pulse Rate [Pulse Oximeter] Respiratory Rate Blood Pressure [Ri ght Arm] Blood Pressure [Ri ght Upper Arm] Pulse Oximetry 94 94 97 Oxygen Delivery Me thod 03/29/25 19:05 03/29/25 19:10 03/29/25 19:20 Temperature Pulse Rate [Left P ulse Oximeter] Pulse Rate [Pulse Oximeter] Respiratory Rate Blood Pressure [Ri ght Arm] Blood Pressure [Ri ght Upper Arm] Pulse Oximetry 96 94 94 Oxygen Delivery Me thod 03/29/25 19:41 03/29/25 19:42 Temperature 99.6 F Pulse Rate [Left P ulse Oximeter] Pulse Rate [Pulse Oximeter] Respiratory Rate Blood Pressure [Ri ght Arm] Blood Pressure [Ri ght Upper Arm] Pulse Oximetry 95 95 Oxygen Delivery Me thod Course Course ED Course: Patient presents with fever, she is fairly tachycardic, febrile here with a temperature of a 100.8?. Presents with a headache, but no meningeal signs, I do not have any reason to suspect meningitis or encephalitis at this time. Symptoms are likely be viral but will check some basic labs, give a L of normal saline, Toradol and Zofran for headache, and reassess how she feels. If labs are concerning or she is feeling worse would consider pursuing other workup. In the absence of symptoms pointing to a likely bacterial cause for her fever, doubt sepsis at this time. Labs are notable for a mildly elevated white blood cell count of 12, lactate is normal at 1.2, I did add on a procalcitonin and this is likewise normal. Her CRP is markedly elevated at almost 17, is urine is notable for 4+ ketones but negative for infection. One view chest is negative by my review, negative by radiology read. Metabolic panel is unremarkable with the exception of an elevated gap of 18, mildly low potassium at 3.1. She did have 1 additional episode of vomiting while here but none since IV was placed and Zofran given. She had a total of 2 L of normal saline is feeling markedly improved. She looks well at this time, she has been ambulatory to the bathroom and her dizziness has resolved. We discussed her labs, discussed that the elevated CRP is somewhat unexpected in the setting of a viral infection, discussed doing additional testing to look for a bacterial source, but in the absence of any symptoms suggesting a bacterial cause, she would prefer just to see how she does over the next couple of days. I think that is reasonable, she understands to return if she has worsening or focal symptoms. Otherwise, will send her home with Zofran, ibuprofen and/or Tylenol as needed for fever. I did recommend that she be seen in clinic on Tuesday if not improving over the next couple of days. We replaced her potassium with 50 meq of potassium bicarbonate. Anticipate that her potassium will normalize once vomiting is controlled. Vital Signs Vital signs: Initial Vital Signs Temperature 100.8 F H 03/29/25 17:58 Temperature Source Temporal Artery Scan 03/29/25 17:58 Pulse Rate 119 H 03/29/25 17:58 Pulse Rhythm Regular 03/29/25 17:58 Respiratory Rate 18 03/29/25 17:58 Blood Pressure 164/107 H 03/29/25 17:58 Blood Pressure Mean 126 H 03/29/25 17:58 Blood Pressure Position Sitting 03/29/25 17:58 Pulse Oximetry 96 03/29/25 17:58 Oxygen Delivery Method Room Air 03/29/25 17:58 Vital Signs Temperature 100.8 F H 03/29/25 17:58 Pulse Rate 119 H 03/29/25 17:58 Respiratory Rate 18 03/29/25 17:58 Blood Pressure 164/107 H 03/29/25 17:58 Pulse Oximetry 96 03/29/25 17:58 Oxygen Delivery Method Room Air 03/29/25 17:58 Temperature 99.6 F 03/29/25 19:42 Pulse Rate 95 03/29/25 18:15 Respiratory Rate 18 03/29/25 18:15 Blood Pressure 128/96 H 03/29/25 18:15 Pulse Oximetry 95 03/29/25 19:42 Oxygen Delivery Method Room Air 03/29/25 18:15 Medications Administered Medications: Generic Name Dose Route Start Last Admin Trade Name Daltonq PRN Reason Stop Dose Admin Sodium Chloride 1,000 mls @ 1,000 mls/hr 03/29/25 19:45 03/29/25 19:52 0.9 % Sodium Chloride 1000 Ml IV 03/29/25 20:44 1,000 mls/hr .Q1H RACHAEL Administration Potassium Bicarbonate 50 meq 03/29/25 19:48 03/29/25 20:10 Potassium Bicarb 25 Meq Effervescent Tab PO 03/29/25 19:49 50 meq ONCE ONE Administration Discontinued Medications Generic Name Dose Route Start Last Admin Trade Name Daltonq PRN Reason Stop Dose Admin Sodium Chloride 1,000 mls @ 1,000 mls/hr 03/29/25 18:15 03/29/25 19:18 0.9 % Sodium Chloride 1000 Ml IV 03/29/25 19:14 Infused .Q1H RACHAEL Infusion Ketorolac Tromethamine 15 mg 03/29/25 18:15 03/29/25 18:39 Ketorolac 15 Mg/Ml Inj IVP 03/29/25 18:16 15 mg ONCE ONE Administration Ondansetron HCl 4 mg 03/29/25 18:15 03/29/25 18:39 Ondansetron 2 Mg/Ml Inj IVP 03/29/25 18:16 4 mg ONCE ONE Administration Medical Decision Making Lab Data Labs: Lab Results 09/26/25 09/26/25 Range/Units 18:28 19:35 WBC 13.48 H (4.50-11.00) K/uL RBC 4.64 (4.00-5.20) m/uL Hgb 13.6 (12.0-16.0) gm/dL Hct 39.8 (33.0-51.0) % MCV 86 (80-100) fL MCH 29 (26-34) pg MCHC 34 (32-36) gm/dL RDW Coeff of Ashli 13.7 (11.5-15.5) % Plt Count 259 (140-440) K/uL Neut % (Auto) 81.6 H (42.0-72.0) % Lymph % (Auto) 10.4 L (20-44) % Otero % (Auto) 7.6 (0.0-11.0) % Eos % (Auto) 0.0 (0.0-7.0) % Baso % (Auto) 0.2 (0.0-3.0) % Neut # (Auto) 11.00 H (1.7-7.0) K/uL Lymph # (Auto) 1.40 (0.90-2.90) K/uL Otero # (Auto) 1.00 H (0.00-0.90) K/UL Eos # (Auto) 0.00 (0.00-0.50) K/uL Baso # (Auto) 0.00 (0.00-0.30) K/uL Abs Immat Gran (auto) 0.00 (0.00-0.30) K/uL Imm/Tot Granulo (auto) 0.2 % Sodium 137 (135-149) mmol/L Potassium 3.1 L (3.6-5.1) mmol/L Chloride 99 (96-114) mmol/L Carbon Dioxide 20 (20-32) mmol/L Anion Gap 18 H (7-15) mEq/L BUN 7 (5-24) mg/dL Creatinine 0.7 (0.5-1.5) mg/dL Estimated Creat Clear 120.51 Estimated GFR 124 ml/min Glucose 96 (60-115) mg/dL Lactate 1.2 (0.5-1.9) mmol/L Calcium 9.3 (8.4-10.6) mg/dL Total Bilirubin 0.7 (0.1-1.5) mg/dL Direct Bilirubin 0.4 (0.0-0.5) mg/dL AST 24 (12-35) U/L ALT 18 (4-35) U/L Alkaline Phosphatase 84 (40-150) U/L C-Reactive Protein 16.7 H (0.5-1.0) mg/dL Total Protein 9.1 H (6.0-8.3) g/dL Albumin 4.9 (3.3-5.0) g/dL Procalcitonin 0.09 (<0.50) ng/mL Urine Color Yellow (Yellow) Urine Appearance Clear (Clear) Urine pH 6.0 (5.0-8.5) Ur Specific [place] >= 1.030 (1.000-1.030) Urine Protein 3+ A (Negative) Urine Glucose (UA) Negative (Negative) Urine Ketones 4+ A (Negative) Urine Blood Trace-lysed A (Negative) Urine Nitrite Negative (Negative) Urine Bilirubin 2+ A (Negative) Urine Urobilinogen 1.0 (0.2-1.0) Ur Leukocyte Esterase Negative (Negative) Urine RBC 2-5 A (0-2) Urine WBC 2-5 (0-5) Ur Squamous Epith Cells Many A (None-Few) Amorphous Sediment Moderate A (None) Urine Bacteria Few A (None) WBC Casts Few A (None) Urine Mucus Few A (None) SARS-CoV-2 (PCR) Negative SARS-CoV-2 (Negative) Influenza Type A (PCR) Negative PCR FLU A (Negative) Influenza Type B (PCR) Negative PCR FLU B (Negative) RSV (PCR) Negative PCR RSV (Negative) Discharge Plan Discharge Clinical Impression: Fever Patient Disposition: Home, Self-Care Condition: Improved Instructions: Fever in Adults (ED) Additional Instructions: As we discussed, your labs are overall reassuring, but you did have an elevated C-reactive protein, a nonspecific inflammatory marker. If you are improving over the next couple of days, this likely is not significantly important. However, if you are not improving over the next couple of days, I would like you to be seen in clinic on Tuesday for recheck. Alternatively, if you are feeling worse in any way, return to the ER for re-evaluation. Otherwise, ibuprofen and/or Tylenol as needed for fever, maintain hydration. Zofran if needed for nausea. Return to work when symptoms are improved and fever has resolved. Follow Up/Referrals: Provider,Not a Local [Primary Care Provider, Family Practice] Stand Alone Forms: BlitzLocal Info Instructions
[2025-03-29 18:35] LABS: Hematocrit* 39.8 % (33.0-51.0); Hemoglobin* 13.6 gm/dL (12.0-16.0); Immature Granulocytes Pct Auto 0.2 %; Lymphocytes Absolute Auto 1.40 K/uL (0.90-2.90); Mean Corpuscular HGB Conc 34 gm/dL (32-36); Mean Corpuscular Hemoglobin 29 pg (26-34); Mean Corpuscular Volume 86 fL (80-100); RDW Coefficient of Variation % 13.7 % (11.5-15.5); Red Blood Count* 4.64 m/uL (4.00-5.20); White Blood Count* 13.48 K/uL (4.50-11.00)
[2025-03-29 18:37] LABS: Lactate Sepsis w/Reflex* 1.2 mmol/L (0.5-1.9)
[2025-03-29] MEDS: ONDANSETRON 2 MG/ML inj 4 MG IVP (18:39)
[2025-03-29 18:42] LABS: Immature Granulocytes Abs Auto 0.00 K/uL (0.00-0.30); Slide Review Reflex No
[2025-03-29 18:54] LABS: Albumin* 4.9 g/dL (3.3-5.0); Chloride* 99 mmol/L (96-114)
[2025-03-29 18:55] LABS: Potassium* 3.1 mmol/L (3.6-5.1); Sodium* 137 mmol/L (135-149)
[2025-03-29 18:57] LABS: Blood Urea Nitrogen* 7 mg/dL (5-24); Creatinine* 0.7 mg/dL (0.5-1.5); Est. Creatinine Clearance* 120.51; Estimated Glomerular Filt Rate 124 ml/min
[2025-03-29 18:58] LABS: Alanine Aminotransferase* 18 U/L (4-35); Alkaline Phosphatase* 84 U/L (40-150); Anion Gap 18 mEq/L (7-15); Aspartate Amino Transferase* 24 U/L (12-35); Bilirubin Direct* 0.4 mg/dL (0.0-0.5); Bilirubin Total* 0.7 mg/dL (0.1-1.5); Calcium* 9.3 mg/dL (8.4-10.6); Carbon Dioxide* 20 mmol/L (20-32); Glucose* 96 mg/dL (60-115); Total Protein* 9.1 g/dL (6.0-8.3)
--- NOTE | 2025-03-29 19:24 | CRLHL7_ITS ---
For Patients: As a result of the Cures Act, medical imaging exams and procedure reports are released immediately into your electronic medical record. You may view this report before your referring provider. If you have questions, please contact your health care provider. INDICATION: Trauma, not otherwise described. COMPARISON: None available. TECHNIQUE: Single AP view of the chest. FINDINGS: Medical Devices: None. Lung Volumes: Adequate inspiration. No significant atelectasis. Lungs: Clear lungs. Pleura and Pleural spaces: No significant pleural effusion. No pneumothorax. Mediastinum: Normal cardiomediastinal silhouette. Bony Thorax and Soft Tissues: No acute traumatic injury is identified. Incidental note is made of a right humeral head bone island. IMPRESSION: No acute traumatic injury is identified. No significant incidental findings. Dictated by Vance Rasheed MD @ 03/29/2025 7:59:44 PM (Electronically Signed)
[2025-03-29 19:44] LABS: Appearance Urine Clear (Clear)
[2025-03-29] MEDS: POTASSIUM BICARB 25 MEQ EFFERVESCENT TAB 50 MEQ PO (20:10)
[2025-03-29 20:17] LABS: Procalcitonin* 0.09 ng/mL (<0.50)
[2025-03-29 20:17] LABS: PCR FLU A Negative PCR FLU A (Negative); PCR FLU B Negative PCR FLU B (Negative); PCR RSV Negative PCR RSV (Negative); SARS PCR* Negative SARS-CoV-2 (Negative)
== END 2025-03-29 21:06 | disposition home or self-care (01) ==
PROVIDERS: Emergency Provider Emergency Medicine
DX: R50.9 Fever, unspecified (principal)
CPT/HCPCS: 36415; 71045; 80048; 80076; 81001; 83605; 84145; 85025; 86140; 87086; 87631; 96374; 96375; 99284; A9270; J1885; J2405; J7030

== ENCOUNTER 2025-03-30 13:22 | Emergency (ER) | payer OTHER, SELFPAY ==
--- OUTSIDE RECORDS SUMMARY | 2017-06-06 04:40 | XMS_ITS | Continuity of Care Document ---
Author Organization [facility] Address [address] [address] [place] [address] Phone Care Team Providers Care Area Field Person Name Role Phone No Information Unavailable Unavailable Advance Directives Directive Yes / No Effective Date File Name No Information Encounters Encounter Description Practice Location Reason(s) For Visit Diagnoses Date Provider Providers Copied on Encounter [facility], [address] [address], [place], [place], [id number], tel:[phone] No Information No Information Referring Provider: Ronen Daniel, [address] [place], [address] . tel:[phone] Family History Family Member Type Diagnosis Age At Onset No Information Payers Payer name Insurance type Covered alliance party ID Authoriza tion(s) No Information Social [...]
--- OUTSIDE RECORDS SUMMARY | 2017-06-06 04:40 | XMS_ITS | Continuity of Care Document ---
Author Organization [facility] Address [address] [address] [place] [address] Phone Care Team Providers Care Title One Teacher Name Role Phone No Information Unavailable Unavailable Advance Directives Directive Yes / No Effective Date File Name No Information Encounters Encounter Description Practice Location Reason(s) For Visit Diagnoses Date Provider Providers Copied on Encounter [facility], [address] [address], [place], [place], [address], tel:[phone] No Information No Information Referring Provider: Ronen Daniel, [address] [place], [address] . tel:[phone] Family History Family Member Type Diagnosis Age At Onset No Information Payers Payer name Insurance type Covered libertarian ID Authoriza tion(s) No Information Social History [...]
--- OUTSIDE RECORDS SUMMARY | 2025-03-30 13:23 | XMS_ITS | Clinical Summary ---
Author Organization [facility] Address [address] [place] [address] Care Team Providers Care Ten Pin Bowling Centre Manager Name Role Phone Ronen Walker Primary Care Provider [phone] Allergies Active Allergy Reactions Criticality Noted Date [...] file Not on file Not on file automation tender Not on file Not on file Not [...] CHLAMYDIA PROBE Negative 09/18/2018 1:34 PM CDT [facility] Other URINE SPECIMEN / Unknown Non-Blood / Unknown 09/15/2018 12:57 PM CDT 09/15/2018 12:57 PM CDT us Ronen ATWOOD MICROBIOLOGY Final Resul t [facility] [address] [place] [address], [place] from Last 3 Months or Most Recently Relevant to Health Maintenance Insurance [facility] [employer] Member Subscriber Plan / Payer (Ef fective 2018-Present) Name:Abigail Cunningham Relation to Subscriber:Child Name:Emily CUNNINGHAM Date of :1971 (Home) (Work) Address: [address] [place] [address] Payer ID:Not on file Group ID:[id number] Type:Not on file Address: [place] [address] Care Teams Ten Pin Bowling Centre Manager Relationship Specialty [place] [address] [place] [address] PCP - General Family Practice 10/03/17
--- OUTSIDE RECORDS SUMMARY | 2025-03-30 13:23 | XMS_ITS | Clinical Summary ---
Author Organization [place] Address [address] [facility] 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 CARE MANAGER Gender Identity Female 10/20/2020 2:01 PM CDT [...] (02/18/2021 1:09 AM CDT) Specimen Description URINE [facility] Chlamydia Trachomatis PCR Negative Negative [facility] 02/18/2021 1:09 AM CDT Narrative [facility] - 02/18/2021 1:09 AM CDT chlamydia screening done 02/18/21 [facility], Found in Care Everywhere us Patient Reported LAB - HIM EXTERNAL RESULT Final Result [facility] [address] [place] [address] from Last 3 Months or Most Recently Relevant to Health Maintenance Insurance [facility] Advance Directives For more information, please contact: [phone] * Full Code (Latest Code Status on File) Date Activated Date Inactivated Comments 12/27/2014 10:10 PM 12/28/2014 1:04 PM Care Teams Commercial Loan Specialist Relationship Specialty Start [place] [address] [place] [address] PCP - General Family Medicine 05/13/20 See Pantoja Personal Advocate & Liaison (PAL) 12/05/20 Crescencio Dominguez PA [address] [place] [id number] Assigned PCP 02/26/23
--- OUTSIDE RECORDS SUMMARY | 2025-03-30 13:24 | XMS_ITS | Encounter Summary ---
Author Organization [facility] Address [address] [place] [address]. [place] [address] Care Team Providers Care Early Childhood Services Coordinator Name Role Phone Colleen Plascencia MD Primary Care Provider [phone] Colleen Plascencia MD Unavailable [phone] Thad Ahmadi Unavailable Unavailable See Pantoja Unavailable Unavailable Colleen Plascencia MD Unavailable [phone] Crescencio Dominguez Unavailable [phone] Encounter Details Date Type Department Care Team (Late st Contact Info) Description 10/20/2020 [facility] Advice [facility] [address] [place] [id number] [place] [id number] [place] [address] Social History Tobacco Use Types Packs/Day [...] PM CDT Legal Sex Female 4:18 AM 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 Routing to [place] ER to assist. Franco Chauhan RN documented in this encounter Plan of Treatment Not on file documented as of this encounter Visit Diagnoses Not on filedocumented in this encounter Additional Health Concerns Assessment Noted Time PHQ-9 Depression Total Score: 8 03/30/20 25 9:03 AM CDT documented as of this encounter Care Teams Early Childhood Services Coordinator Relationship Specialty Start [place] [address] [place] [address] PCP - General Family Medicine 05/13/20 [place] [address] [place] [address] Assigned PCP 04/24/20 06/18/22 Thad Ahmadi Personal Advocate & Liaison (PAL) 11/06/20 12/05/20 See Pantoja Personal Advocate & Liaison (PAL) 12/05/20 [place] [address] [place] [address] Assigned PCP 08/28/22 02/25/23 Crescencio Dominguez PA [address] [place] [address] Assigned PCP 02/26/23 documented as of this encounter
--- OUTSIDE RECORDS SUMMARY | 2025-03-30 13:24 | XMS_ITS | Encounter Summary ---
Author Organization [place] Address [address] [place] [address]. [place] [address] Care Team Providers Care Director Index Name Role Phone Colleen Plascencia MD Primary Care Provider [phone] Colleen Plascencia MD Unavailable [phone] See Pantoja Unavailable Unavailable Colleen Plascencia MD Unavailable [phone] Crescencio Dominguez Unavailable [phone] Encounter Details Date Type Department Care Team (Late st Contact Info) Description 09/25/2021 [facility] Medical Advice [address] [phone] See Pantoja Social History Tobacco Use Types [...] PM CDT Legal Sex Female 4:18 AM E LEARNING COORDINATOR Gender Identity Female 10/20/2020 2:01 PM CDT Sexual Orientation Not on file COVID-19 Exposure Response Date Recorded In the last month, have you been in contact with someone who was confirmed or suspected to have Coronavirus / COVID-19? No / Unsure 09/02/2021 5:32 PM E LEARNING COORDINATOR documented as of this encounter Plan of Treatment Not on file documented as of this encounter Visit Diagnoses Not on filedocumented in this encounter Additional Health Concerns Assessment Noted Time PHQ-9 Depression Total Score: 4 09/27/19 22 7:03 AM CDT documented as of this encounter Care Teams Director Index Relationship Specialty Start [place] [address] [place] [address] PCP - General Family Medicine 05/13/20 [place] [address] [place] [address] Assigned PCP 04/24/20 06/18/22 See Pantoja Personal Advocate & Liaison (PAL) 12/05/20 [place] [address] [place] [address] Assigned PCP 08/28/22 02/25/23 Crescencio Dominguez PA [address] [place] [address] Assigned PCP 02/26/23 documented as of this encounter
--- OUTSIDE RECORDS SUMMARY | 2025-03-30 13:24 | XMS_ITS | Encounter Summary ---
Author Organization [facility] Address [address] [place] [address]. 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 No / Unsure 09/02/2021 5:32 PM SCOUT LEASER documented as of this encounter Plan of Treatment Not on file documented as of this encounter Visit Diagnoses Not on filedocumented in this encounter Additional Health Concerns Assessment Noted Time PHQ-9 Depression Total Score: 4 09/27/19 22 7:03 AM CDT documented as of this encounter Care Teams Earrings Fabricator Relationship Specialty [place] [address] [place] [address] PCP - General Family Medicine 05/13/20 [place] [address] [place] [address] Assigned PCP 04/24/20 06/18/22 See Pantoja Personal Advocate & Liaison (PAL) 12/05/20 [place] [address] [place] [address] Assigned PCP 08/28/22 02/25/23 Crescencio Dominguez PA [address] [place] [id number] Assigned PCP 02/26/23 documented as of this encounter
--- OUTSIDE RECORDS SUMMARY | 2025-03-30 13:24 | XMS_ITS | Encounter Summary ---
Author Organization [facility] Address [address] [place] [address]. 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
--- OUTSIDE RECORDS SUMMARY | 2025-03-30 13:24 | XMS_ITS | Clinical Summary ---
[facility] Address [address] [address] Care Team Providers Care Railroad Shop Inspector Name Role Phone Yani Dickinson PA-C Primary Care Provider Source Comments You are receiving this document as you are listed as the primary care provider,follow-up provider, or the patient has been referred to you for consultation.This is in compliance with the Medicare andThe [facility] EHR Incentive Program,which states Providers who transition their patient to another setting of careor provider of care or refers their patient to another provider of care shouldprovide summary care record for each transition of care or referral. Critical access hospital Allergies Active Allergy Reactions Criticality Noted Date [...] Offered referral but she does have a PROVIDER RELATIONS CONSULTANT she already uses. Recommended discussing with her [...] 08/02/2022 Assessment & Plan (08/02/2022 9:34 AM ENVIRONMENTAL HEALTH MANAGER): - Screen for diabetes and iron deficiency [...] anxiety. 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 Not on file Not on file Last Filed Vital Signs Vital Sign Reading Time Taken Comments Blood Pressure 123/65 08/18/2023 11:26 AM ENVIRONMENTAL HEALTH MANAGER Pulse 67 08/18/2023 11:26 AM ENVIRONMENTAL HEALTH MANAGER Temperature 36.9 C (98.5 F) 08/18/2023 11:26 AM ENVIRONMENTAL HEALTH MANAGER Respiratory Rate 18 08/12/2020 2:43 PM ENVIRONMENTAL HEALTH MANAGER Oxygen Saturation 98% 08/12/2020 2:43 PM ENVIRONMENTAL HEALTH MANAGER Inhaled Oxygen Concentration - - Weight 76.2 kg (168 lb) 08/18/2023 11:26 AM ENVIRONMENTAL HEALTH MANAGER Height 170.2 cm (5' 7) 08/02/2022 9:01 AM ENVIRONMENTAL HEALTH MANAGER Body Mass Index 26.31 08/02/2022 9:01 AM ENVIRONMENTAL HEALTH MANAGER Plan of Treatment Health Maintenance Due Date [...] YEARS & OLDER) Routine 05/13/2022 4:11 PM ENVIRONMENTAL HEALTH MANAGER Annual physical exam Screen for STD (sexually transmitted disease) CYTOLOGY (PAP) Routine 05/13/2022 4:10 PM ENVIRONMENTAL HEALTH MANAGER Screening for cervical cancer HIV 1/2 AG/AB 4TH GEN Routine 02/18/2021 12:26 PM CDT Screening for HIV (human immunodeficiency virus) from Last 3 Months or Most Recently Relevant to Health Maintenance Results * Chlamydia & GC (14 Years and Older) (05/13/2022 4:11 PM ENVIRONMENTAL HEALTH MANAGER) Chlamydia Trachomatis STD Not Detected Not Detected 05/14/2022 12:30 PM ENVIRONMENTAL HEALTH MANAGER [facility] N. gonorrhoeae STD Not Detected Not Detected 05/14/2022 12:30 PM ENVIRONMENTAL HEALTH MANAGER [facility] Swab STD SPECIMEN FROM VAGINA / Unknown Non-blood Collection / Unknown 05/13/2022 4:11 PM ENVIRONMENTAL HEALTH MANAGER 05/13/2022 4:17 PM ENVIRONMENTAL HEALTH MANAGER Narrative [facility] - 05/14/2022 12:30 PM ENVIRONMENTAL HEALTH MANAGER Test performed by Fitter/Welder Mediated Amplification (TMA). Thania Caballero APRN, [facility]OR[facility] LAB_1 Final Result [facility] [address] [place] [address], [facility] [phone] * PAP Test (05/13/2022 4:10 PM ENVIRONMENTAL HEALTH MANAGER) Case Report Pap Case: [id number] Authorizing Provider: Thania Caballero APRN, Collected: 05/13/2022 1610 UTILITY SYSTEM OPERATOR Ordering Location: [facility] Received: 05/13/2022 1618 Services-WASTEWATER DESIGN ENGINEER First Screen: Suze Cartwright Rescreen: Gaviota Burciaga CT (ASCP) Specimen: Pap Test, Routine, Cervix/Endocervix 05/26/2022 1:16 PM ENVIRONMENTAL HEALTH MANAGER [facility] Pap Specimen Adequacy Satisfactory for evaluation, endocervical/gray sformation zone component present. 05/26/2022 1:16 PM ENVIRONMENTAL HEALTH MANAGER [facility] Pap Interpretation (NILM) Negative for intraepithelial lesion or malignancy. 05/26/2022 1:16 PM ENVIRONMENTAL HEALTH MANAGER [facility] at 1316 ENVIRONMENTAL HEALTH MANAGER Pap Disclaimer The Pap test is a screening test designed to aid in the detection of cervical cancer and its precursor lesions. It is not a diagnostic procedure and should not be used as the sole means of detecting cervical cancer. Both false-positive and false-negative results may occur. 05/26/2022 1:16 PM ENVIRONMENTAL HEALTH MANAGER [facility] Gross Description The specimen is received in SurePath fixative and properly labeled. 1 Pap-stained SurePath slide is prepared. 05/26/2022 1:16 PM ENVIRONMENTAL HEALTH MANAGER [facility] Embedded Images 1:16 PM ENVIRONMENTAL HEALTH MANAGER [facility] Other Specimen Type ENTIRE ENDOCERVIX / Unknown 05/13/2022 4:10 PM ENVIRONMENTAL HEALTH MANAGER 05/13/2022 4:18 PM ENVIRONMENTAL HEALTH MANAGER Comment:LMP: Patient's last menstrual period was 04/29/2022 (exact date). us Thania Caballero APRN, UTILITY SYSTEM OPERATOR LAB PATHOLOGY Final Result [facility] [address] [place], [place] [address] * HIV 1/2 Ag/Ab 4th Generation (02/18/2021 12:26 PM CDT) HIV 1/2 Antigen/Anti body (4th generation) Negative (Non Reactive) Negative (Non Reactive) 02/18/2021 4:50 PM CDT [facility] Comment:HIV-1 p24 Antigen an d HIV-1/HIV-2 Antibody not detected Blood Venipuncture / Unknown 02/18/2021 12:26 PM CDT 02/18/2021 12:27 PM CDT us Anisha Main MD LAB_1 Final Result Performing Organization Address City/[facility] Co de Phone Number [facility] [address] [phone] from Last 3 Months or Most Recently Relevant to Health Maintenance Insurance [facility] Care Teams Railroad Shop Inspector Relationship Specialty Start Date End Date Yani Dickinson, PAKavehC [address] [address] [place] [address] PCP - General Physician Supervisor Newspaper Deliveries 09/03/22
[2025-03-30 13:30] VITALS: BP 124/77; PULSE 112; RESP 18; TEMP 37.7; O2SAT 96; BMI 26.6
--- NOTE | 2025-03-30 13:44 | ED.GENADULT ---
HPI - General Adult General Chief complaint: Nausea/Vomiting Stated complaint: Nausea, short of breath Time Seen by Provider: 03/30/25 13:34 History of Present Illness HPI narrative: This 24-year-old female was seen yesterday in this emergency department because of nausea and lightheadedness symptoms. An IV was established where she received fluids and Zofran. Labs are acquired and the patient was feeling better and was sent home. She states that she awoke at about 12:30 a.m. with fever measured at about 102 and nausea symptoms with vomiting. She has had recurrent vomiting and persistent fever since then and returns now. She does not report any pain. She does feel some reflux symptoms up into her chest but states that this is likely related to vomiting. She arrives here with a temperature of 100? F. She has not taken any antipyretics. She has been taking Zofran without much relief. She does arrive here reporting a dry mouth and has some tachycardia with heart rate at 112. She does not report any dysuria symptoms. Related Data Home Medications ?Medication ?Instructions ?Recorded ?Confirmed No Known Home Medications 03/30/25 03/30/25 Allergies Allergy/AdvReac Type Severity Reaction Status Date / Time sulfamethoxazole (From Allergy Mild Hives Verified 03/30/25 13:29 Bactrim) trimethoprim (From Bactrim) Allergy Mild Hives Verified 03/30/25 13:29 Review of Systems Status of ROS: Reports: 10 or more systems reviewed and unremarkable except as noted in History and below Narrative: Constitutional: No fevers, no weight gain or loss. Eyes: No discharge. No vision changes. HENT: No congestion, no sore throat, no ear pain. Cardiovascular: No chest pain, no palpitations. Respiratory: No shortness of breath, no wheezes, no cough. Gastrointestinal: No abdominal pain, no diarrhea. She reports nausea and vomiting. Genitourinary: No dysuria, no hematuria. Musculoskeletal: Normal range of motion. Skin: No rashes, no pruritis. Neurological: No dizziness, weakness, sensory change, speech change. Endo/Heme/Allergies: No bruising or bleeding. No polydipsia. Pysch: no suicidality, no anxiety, no insomnia. All other systems reviewed and are negative. [facility] Medical History Depression ?F32.A - Depression, unspecified (ICD-10) AUREA (generalized anxiety disorder) ?F41.1 - Generalized anxiety disorder (ICD-10) Surgical History History of appendectomy ?Z90.49 - Acquired absence of other specified parts of digestive tract (ICD-10) Social History Smoking Status: Never smoker Do you use any of these nicotine containing products: None Second hand tobacco smoke exposure: No How often do you have a drink containing alcohol: never How often do you have six or more drinks on one occasion: Never AUDIT-C Alcohol total score: 0 Non-prescribed substance use: denies use service: No Exam Narrative: Exam Narrative: Constitutional: Well-developed, well-nourished, no acute distress. HEENT: Normocephalic, atraumatic. Neck: Normal range of motion. Nontender. Supple. Heart: Regular. No murmurs. Tachycardia. Intact distal pulses. Lungs: Clear to auscultation. No chest discomfort. No wheezes, rhonchi, or rales. Abdomen: Normal bowel sounds. Nontender. No rebound tenderness. Genitalia: Deferred. Back: No midline tenderness. Normal range of motion. Extremities: Normal range of motion. No injury. Skin: Intact. No rash. Warm. No erythema or pallor. Neurologic: No altered sensation. No weakness. Alert and oriented. Psychiatric: No suicidality. No anxiety or depression. No insomnia. Nursing notes and vitals signs are reviewed. Const: Vital Signs, click to edit/add: Vital Signs - 24 hr 03/30/25 13:30 Temperature 100 F H Pulse Rate [Pulse Oximeter] 112 H Respiratory Rate 18 Blood Pressure [Ri ght Upper Arm] 124/77 Pulse Oximetry 96 Oxygen Delivery Me thod Room Air Course Vital Signs Vital signs: Initial Vital Signs Temperature 100 F H 03/30/25 13:30 Temperature Source Temporal Artery Scan 03/30/25 13:30 Pulse Rate 112 H 03/30/25 13:30 Respiratory Rate 18 03/30/25 13:30 Blood Pressure 124/77 03/30/25 13:30 Blood Pressure Mean 92 03/30/25 13:30 Blood Pressure Position Sitting 03/30/25 13:30 Pulse Oximetry 96 03/30/25 13:30 Oxygen Delivery Method Room Air 03/30/25 13:30 Vital Signs Temperature 100 F H 03/30/25 13:30 Pulse Rate 112 H 03/30/25 13:30 Respiratory Rate 18 03/30/25 13:30 Blood Pressure 124/77 03/30/25 13:30 Pulse Oximetry 96 03/30/25 13:30 Oxygen Delivery Method Room Air 03/30/25 13:30 Temperature 100 F H 03/30/25 13:30 Pulse Rate 112 H 03/30/25 13:30 Respiratory Rate 18 03/30/25 13:30 Blood Pressure 124/77 03/30/25 13:30 Pulse Oximetry 96 03/30/25 13:30 Oxygen Delivery Method Room Air 03/30/25 13:30 Medications Administered Medications: Discontinued Medications Generic Name Dose Route Start Last Admin Trade Name Freq PRN Reason Stop Dose Admin Sodium Chloride 1,000 mls @ 1,000 mls/hr 03/30/25 13:45 03/30/25 15:08 0.9 % Sodium Chloride 1000 Ml IV 03/30/25 14:44 Infused .Q1H RACHAEL Infusion Ondansetron HCl 4 mg 03/30/25 13:42 03/30/25 14:31 Ondansetron 2 Mg/Ml Inj IVP 03/30/25 13:43 4 mg ONCE ONE Administration Medical Decision Making MDM Narrative Medical decision making narrative: This patient comes in with persistent nausea and vomiting starting yesterday. She also reports some fevers but during her stay here she has been afebrile. An IV was established again and she received a L of normal saline along with Zofran. She states that she is feeling better in Ham respects. I did acquire labs and urine again and these show some improvement compared to yesterday. In particular her white count has normalized. Yesterday it was a bit elevated at 13. Her C-reactive protein is elevated to 17. It does seem that this is more likely a viral gastroenteritis. The patient does have Zofran and feels okay to return home to increase her diet as tolerated. Lab Data Labs: Lab Results 03/30/25 03/30/25 03/30/25 Range/Units 13:43 14:12 14:23 WBC 9.81 (4.50-11.00) K/uL RBC 3.81 L (4.00-5.20) m/uL Hgb 11.3 L (12.0-16.0) gm/dL Hct 32.9 L (33.0-51.0) % MCV 86 (80-100) fL MCH 30 (26-34) pg MCHC 34 (32-36) gm/dL RDW Coeff of Ashli 13.6 (11.5-15.5) % Plt Count 200 (140-440) K/uL Neut % (Auto) 79.3 H (42.0-72.0) % Lymph % (Auto) 12.5 L (20-44) % [place] % (Auto) 7.8 (0.0-11.0) % Eos % (Auto) 0.0 (0.0-7.0) % Baso % (Auto) 0.3 (0.0-3.0) % Neut # (Auto) 7.80 H (1.7-7.0) K/uL Lymph # (Auto) 1.20 (0.90-2.90) K/uL [place] # (Auto) 0.80 (0.00-0.90) K/UL Eos # (Auto) 0.00 (0.00-0.50) K/uL Baso # (Auto) 0.03 (0.00-0.30) K/uL Abs Immat Gran (auto) 0.01 (0.00-0.30) K/uL Imm/Tot Granulo (auto) 0.1 % Sodium 136 (135-149) mmol/L Potassium 3.4 L (3.6-5.1) mmol/L Chloride 100 (96-114) mmol/L Carbon Dioxide 24 (20-32) mmol/L Anion Gap 12 (7-15) mEq/L BUN 7 (5-24) mg/dL Creatinine 0.6 (0.5-1.5) mg/dL Estimated Creat Clear 140.60 Estimated GFR 128 ml/min Glucose 92 (60-115) mg/dL Lactate 1.1 (0.5-1.9) mmol/L Calcium 8.9 (8.4-10.6) mg/dL C-Reactive Protein 17.6 H (0.5-1.0) mg/dL Urine Color Yellow (Yellow) Urine Appearance Clear (Clear) Urine pH 6.0 (5.0-8.5) Ur Specific [place] >= 1.030 (1.000-1.030) Urine Protein 2+ A (Negative) Urine Glucose (UA) Negative (Negative) Urine Ketones 4+ A (Negative) Urine Blood 2+ A (Negative) Urine Nitrite Negative (Negative) Urine Bilirubin 1+ A (Negative) Urine Urobilinogen 2.0 A (0.2-1.0) Ur Leukocyte Esterase Negative (Negative) Urine RBC 0-2 (0-2) Urine WBC 2-5 (0-5) Ur Squamous Epith Cells Few (None-Few) Urine Bacteria Moderate A (None) Urine Mucus Many A (None) Discharge Plan Discharge Clinical Impression: Gastroenteritis Patient Disposition: Home, Self-Care Condition: Improved Additional Instructions: Take frequent sips of fluids and increase diet otherwise as tolerated. Use Zofran as needed and directed for symptomatic relief. Follow up with MD return if symptoms are persistent or worsening. Prescriptions: No Action No Known Home Medications Follow Up/Referrals: Provider,Not a Local [Primary Care Provider, Family Practice] Stand Alone Forms: POP Propertiesth Info Instructions
[2025-03-30 14:28] LABS: Lactate* 1.1 mmol/L (0.5-1.9)
[2025-03-30] MEDS: ONDANSETRON 2 MG/ML inj 4 MG IVP (14:31)
[2025-03-30 14:32] LABS: Hematocrit* 32.9 % (33.0-51.0); Hemoglobin* 11.3 gm/dL (12.0-16.0); Immature Granulocytes Abs Auto 0.01 K/uL (0.00-0.30); Immature Granulocytes Pct Auto 0.1 %; Mean Corpuscular HGB Conc 34 gm/dL (32-36); Mean Corpuscular Hemoglobin 30 pg (26-34); Mean Corpuscular Volume 86 fL (80-100); RDW Coefficient of Variation % 13.6 % (11.5-15.5); Red Blood Count* 3.81 m/uL (4.00-5.20); White Blood Count* 9.81 K/uL (4.50-11.00)
[2025-03-30 14:35] LABS: Lymphocytes Absolute Auto 1.20 K/uL (0.90-2.90); Slide Review Reflex No
[2025-03-30 14:43] LABS: Chloride* 100 mmol/L (96-114); Potassium* 3.4 mmol/L (3.6-5.1); Sodium* 136 mmol/L (135-149)
[2025-03-30 14:47] LABS: Anion Gap 12 mEq/L (7-15); Blood Urea Nitrogen* 7 mg/dL (5-24); Calcium* 8.9 mg/dL (8.4-10.6); Carbon Dioxide* 24 mmol/L (20-32); Creatinine* 0.6 mg/dL (0.5-1.5); Est. Creatinine Clearance* 140.60; Estimated Glomerular Filt Rate 128 ml/min; Glucose* 92 mg/dL (60-115)
[2025-03-30 15:07] LABS: Appearance Urine Clear (Clear)
== END 2025-03-30 16:17 | disposition home or self-care (01) ==
PROVIDERS: Emergency Provider Emergency Medicine Emergency Medical Services
DX: K52.9 Noninfective gastroenteritis and colitis, unspecified (principal)
CPT/HCPCS: 36415; 80048; 81001; 83605; 85025; 86140; 87040; 96374; 99283; 99284; J2405; J7030